=== PATIENT | female | born 1960 | race African-American/Black ===

== ENCOUNTER 2016-08-18 09:42 | Emergency (ER) | payer OTHER ==
[2016-08-18 09:58] VITALS: BP 177/87; BMI 32.1
[2016-08-18] MEDS ORDERED: XYLOCAINE 1 % (PLAIN) ONE (09:58)
[2016-08-18] MEDS ORDERED: XYLOCAINE 1 % (PLAIN) IM ONE (10:10)
--- NOTE | 2016-08-18 10:15 | DR.F ---
HPI - Time Seen Time seen: 10:10 - PCP Primary Care Physician: NASIMA - HPI Comment HPI Comment: History as stated. Denies trauma - Complaint Chief Complaint:: PT C/O LT HAND 3RD DIGIT PAIN SWELLING AND REDNESS. PT STATES YESTERDAY SHE NOTICED HER FINGER HAVING SOME PAINS AND SWELLING. - Source History Provided: Patient - Mode of Arrival Mode of Arrival: Ambulatory - Timing Onset of Chief Complaint: 08/17/16 PMH - PMH Past Medical History: Yes Past Medical History: Hypertension Past Surgical History: Yes Surgical History: Ortho Surgery - Family History History of Family Medical Conditions: Yes Family Medical History: Diabetes Mellitus, [place], Hypertension - Social History Does any household member use tobacco: No Alcohol Use: Rarely Do you use any recreational Drugs:: No Lives With: Family Lives Where: Home - infectious screening In the last 2 months have you had wt loss of >10#?: NO Have you had fever, night sweats or hemotysis?: No Have you traveled outside the country in the last 6 months?: No Isolation: Standard ROS - Review of Systems Constitutional: No Symptoms Reported Eyes: No Symptoms Reported ENTM: No Symptoms Reported Respiratoy: No Symptoms Reported Cardiovascular: No Symptoms Reported Gastrointestinal/Abdominal: No Symptoms Reported Genitourinary: No Symptoms Reported Neurological: No Symptoms Reported Musculoskeletal: Left (finger pain) Integumentary: Other Hematologic/Lymphatic: No Symptoms Reported Endocrine: No Symptoms Reported Psychiatric: No Symptoms Reported PE - Vital Signs Vitals: Temperature 97.7 F Pulse Rate 101 Respiratory Rate 20 Blood Pressure [Right Arm] 123/70 Blood Pressure 177/87 O2 Sat by Pulse Oximetry 100 Procedures - Procedure Comments Procedures: Dorsal nerve block of 3rd digit left--skin dehisced; no pus - Diagnosis Discharge Problem: Paronychia of finger of left hand - Discharge Plan Condition: Stable - Follow ups/Referrals Follow ups/Referrals: ARYA BUENO [Primary Care Provider] - 3 days - Instructions
== END 2016-08-18 10:32 | disposition home or self-care (01) ==
LOC: ER 09:42
DX: M79.642 Pain in left hand (principal)
CPT/HCPCS: 99282; J2001

== ENCOUNTER → 2017-03-29 | Outpatient (CLI) | payer OTHER ==
--- NOTE | 2017-04-02 14:34 | RAD ---
HISTORY: Right hip pain, right radiculopathy Study: Right hip AP, frog-leg, AP pelvis Comparison: None Findings: The pelvic bones and SI joints are intact. There is some degenerative joint space narrowing in the ri ght hip joint. No joint erosions are identified. No fracture, lytic, or blastic lesion is identified. IMPRESSION: Moderate degenerative joint disease right hip Reported By:
--- NOTE | 2017-04-02 14:35 | RAD ---
HISTORY: Radiculopathy with right hip pain Study: Five views of the lumbar spine Comparison: None Findings: Images demonstrate 5 [id number] lumbar vertebral bodies. The lumbar vertebral body heights are r elatively maintained. No evidence of acute displaced fracture is identified. Mild grade 1 retrolisthe sis of L2 on L3 is noted. There is suspected minimal grade 1 anterolisthesis of L3 on L4. Degenerate facet changes are seen throughout the lumbar spine. Multilevel intervertebral disc space narrowing is noted. Mild multilevel osteophytosis is also demonstrated. Atherosclerotic changes are seen within t he visualized aorta. IMPRESSION: 1. Multilevel degenerative changes as noted above. Reported By:
== END | disposition home or self-care (01) | DRG 552 ==
LOC: RAD 18:06
PROVIDERS: ATTEND Nurse Practitioner Family
DX: M54.17 Radiculopathy, lumbosacral region (principal); M25.551 Pain in right hip; M16.11 Unilateral primary osteoarthritis, right hip; M51.36 Other intervertebral disc degeneration, lumbar region
CPT/HCPCS: 72110; 73501

== ENCOUNTER → 2017-09-12 | Outpatient (CLI) | payer OTHER ==
--- NOTE | 2017-09-12 19:35 | RAD ---
LUMBAR SPINE RADIOGRAPHS CLINICAL HISTORY: 57-year-old female with right-sided pain extending into the right leg. COMPARISON: Radiographs lumbar spine 03/29/2017. FINDINGS: The most caudad, fully-formed intervertebral disc will be labeled L5-S1 for the purpose of this dictation and in keeping with prior imaging. Three views of the lumbar spine were obtained. Ther e are 5 nonrib-bearing lumbar type vertebral bodies. Normal lumbar lordosis is maintained. Vertebral body heights are maintained. No significant change and mild degenerative anterolisthesis L3 on L4 an d L4 on L5 with loss of disc space at these levels and multilevel facet hypertrophy. No radiographic evidence of acute fracture or malalignment. There is no sacroiliac diastasis. IMPRESSION: 1. No radiographic evidence of acute compression fracture deformity or malalignment on screening lumb ar spine radiographs. 2. Multilevel degenerative change as described, chronic in appearance, consider nonemergent outpatien t MR lumbar spine for radicular symptoms. Reported By:
== END ==
LOC: RAD 18:51
PROVIDERS: ATTEND Nurse Practitioner Family
DX: M54.5 Low back pain (principal)
CPT/HCPCS: 72100

== ENCOUNTER → 2017-10-12 | Outpatient (CLI) | payer OTHER ==
--- NOTE | 2017-10-12 09:25 | US ---
History: Pain Exam: Gallbladder ultrasound Comparison: None Technique: Multiple grayscale and color flow Doppler images of the gallbladder were obtained. Findings: The liver is measures 18 cm along the midclavicular line with increased echogenicity throughout the p arenchyma. No focal lesion is seen. There is hepatopetal flow in the portal vein and visualized hepat ic veins and IVC are unremarkable. The gallbladder is normal size with numerous rounded echogenic foc i in the lumen which are shadowing and mobile . There is no significant wall thickening and no perich olecystic fluid is seen. The common duct measures 6.2 mm. The right kidney measures 11 cm in length i s normal in echogenicity with a 1.2 cm cyst along the lower pole. The visualized aorta and pancreas a re unremarkable. IMPRESSION: Multiple gallstones with no sonographic evidence of cholecystitis . Mild hepatomegaly and probable fibrofatty changes throughout . Borderline enlargement of the common bile duct and unremarkable pancreas. Recommend correlating with lab values. Reported By:
== END | disposition home or self-care (01) | DRG 552 ==
LOC: RAD 08:40
PROVIDERS: ATTEND Nurse Practitioner Family
DX: M54.5 Low back pain (principal); R93.7 Abnormal findings on diagnostic imaging of other parts of musculoskeletal system; K80.20 Calculus of gallbladder without cholecystitis without obstruction
CPT/HCPCS: 76705

== ENCOUNTER 2017-12-24 05:05 | Observation (INO) ==
[2017-12-24] MEDS ORDERED: TORADOL 30 MG VIAL IVP ONE (06:42)
[2017-12-24] MEDS ORDERED: TORADOL 30 MG VIAL ONE (06:52)
[2017-12-24] MEDS ORDERED: MORPHINE SULFATE INJ 4 MG IVP ONE (07:03)
[2017-12-24] MEDS ORDERED: MORPHINE SULFATE INJ 4 MG ONE (07:07)
--- NOTE | 2017-12-24 07:15 | ED.ABDFE ---
HPI Time Seen Time seen: 06:45 PCP Primary Care Physician: ALISON PONCE Complaint Doctors Chief Complaint Comments: Patient presents to the ED with complaint of RUQ pain for the past 24 hours and not relieved by routine medication. 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 Past Surgical History Comment: LEFT TOTAL KNEE HYSTERECTOMY Family History History of Family Medical Conditions: Yes Family Medical History: Diabetes Mellitus, [place] and Hypertension Social History Does patient currently use any type of tobacco product: No Have you used tobacco products in the last 12 months: No Type of Tobacco Use: None Does any household member use tobacco: No Alcohol Use: None Do you use any recreational Drugs:: No Lives With: Spouse Lives Where: Home infectious screening In the last 2 months have you had wt loss of >10#?: NO Have you had fever, night sweats or hemotysis?: No Have you traveled outside the country in the last 6 months?: No Isolation: Standard ROS Review of Systems ENTM: No Symptoms Reported and See HPI Gastrointestinal/Abdominal: See HPI and Abdominal Pain Genitourinary: No Symptoms Reported Neurological: No Symptoms Reported Musculoskeletal: No Symptoms Reported PE Vital Signs Vitals: Temperature 97.0 F Pulse Rate 99 Respiratory Rate 20 Blood Pressure [Right Arm] 123/70 Blood Pressure 190/95 O2 Sat by Pulse Oximetry 97 General General Appearance: Alert, Anxious and In Distress Eyes Eye exam: Normal Appearance ENT ENT Exam: Normal Exam, Normal Oropharynx, Normal External Ear Exam and Mucous Membranes Moist Neck Neck Exam: Normal Inspection, Full ROM and Trachea Midline; negative Tenderness Chest Chest Inspection: Normal Inspection and Symmetric Chest Wall Rise; negative Tenderness Respiratory Respiratory Exam: Normal Lung Sounds Bilat; negative Chest Wall Tenderness and Respiratory Distress Respiratory Exam: Bilateral: Clear to Auscultation Cardiovascular Cardiovascular Exam: Regular Rate and Normal Rhythm Abdominal Exam Abdominal Exam: Normal Inspection, Soft, Rebound (RUQ tenderness) and Hyperactive Bowel Sounds; negative Ascites Rectal Rectal Exam: Deferred Back Back Exam: Normal Inspection; negative (R) CVA Tenderness and (L) CVA Tenderness Extremeties Extremities Exam: Normal Inspection and Full ROM External Exam: Female: Deferred : Speculum Exam (Female): Deferred : Bimanual Exam (female): Deferred Neurologic Neurological Exam: Alert, Oriented X3 and CN II-XII Intact Psychiatric Psychiatric Exam: Normal Affect, Normal Mood and Anxious Skin Skin Exam: Warm, Dry, Intact and Normal Color; negative Rash, Diaphoresis and Erythema COURSE Treatment Treatment: Toradol, Morphine Reevaluation 1st: Improved 3rd: Unchanged ROR Labs Reviewed Laboratory Results Reviewed?: Yes ADDITIONAL NOTES Additional Notes Additional Notes: Dr Truong was contacted he agreed to admit for further evaluation 0750. Dr Javed contacted and he reported that he will see patient this PM.
[2017-12-24 08:26] LABS: BASOPHILS % (AUTO) 0.9 % (0.2-1.0); EOSINOPHILS # (AUTO) 0.1 x10^3/uL (0.0-0.2); EOSINOPHILS % (AUTO) 1.5 % (0.9-2.9); HEMATOCRIT 36.6 % (36.0-47.0); LYMPHOCYTES # (AUTO) 1.7 X10^3/uL (1.3-2.9); MEAN CORPUSCULAR HEMOGLOBIN 27.7 pg (27.0-34.0); MEAN CORPUSCULAR HGB CONC 32.8 g/dL (33.0-35.0); MEAN CORPUSCULAR VOLUME 84.4 fL (80.0-100.0); MEAN PLATELET VOLUME 10.1 fL (7.4-11.0); MONOCYTES # (AUTO) 0.4 x10^3/uL (0.3-0.8); MONOCYTES % (AUTO) 6.9 % (0.0-13.0); NEUTROPHILS # (AUTO) 3.5 x10^3/uL (2.2-4.8); NEUTROPHILS % (AUTO) 60.7 % (42.0-75.0); PLATELET COUNT 249 X10^3/uL (150.0-450.0); RED BLOOD COUNT 4.34 X10^6/uL (3.5-5.4); RED CELL DISTRIBUTION WIDTH 13.4 % (11.6-16.5); WHITE BLOOD COUNT 5.8 X10^3/uL (3.6-10.0)
[2017-12-24] MEDS ORDERED: PREVNAR 13 IM ONE (09:23)
[2017-12-24] MEDS: NORVASC TAB 5 MG PO SCH (09:57)
[2017-12-24] MEDS: NS 1000 ML 1,000 ML IV SCH ×2 (09:57→21:10)
[2017-12-24] MEDS: GLUCOPHAGE PO SCH ×2 (09:59→21:12)
[2017-12-24 13:47] LABS: BILIRUBIN,URINE NEGATIVE (NEGATIVE); BLOOD/HEMOGLOBIN,URINE 1+ (NEGATIVE); GLUCOSE, URINE NEGATIVE (NEGATIVE); KETONES,URINE NEGATIVE (NEGATIVE); LEUKOCYTE ESTERASE ,URINE 3+ (NEGATIVE); NITRITES,URINE NEGATIVE (NEGATIVE); PROTEIN,URINE 2+ (NEGATIVE); UROBILINOGEN,URINE NORMAL (NORMAL)
[2017-12-24 14:01] LABS: APPEARANCE,URINE HAZY (CLEAR); BACTERIA,URINE TRACE /HPF (NEGATIVE); COLOR,URINE YELLOW (YELLOW); MUCUS,URINE FEW /HPF (NEGATIVE); RBC,URINE 0-2 /HPF (NONE SEEN); SQUAMOUS EPITHELIAL CELL,UR MODERATE /HPF (NEGATIVE)
[2017-12-24] MEDS: MORPHINE SULFATE INJ 2 MG INJ IVP PRN (15:03)
[2017-12-24] MEDS ORDERED: PNEUMOVAX 23 IM ONE (16:00)
[2017-12-24] MEDS ORDERED: ULTRAM PO PRN (19:32)
[2017-12-25] MEDS: MORPHINE SULFATE INJ 2 MG INJ IVP PRN ×2 (03:40→09:23)
[2017-12-25 05:33] LABS: BASOPHILS % (AUTO) 0.8 % (0.2-1.0); EOSINOPHILS # (AUTO) 0.1 x10^3/uL (0.0-0.2); EOSINOPHILS % (AUTO) 2.4 % (0.9-2.9); HEMATOCRIT 34.9 % (36.0-47.0); HEMOGLOBIN 11.3 g/dL (12.0-16.0); LYMPHOCYTES % (AUTO) 40.6 % (21.0-51.0); MEAN CORPUSCULAR HEMOGLOBIN 27.2 pg (27.0-34.0); MEAN CORPUSCULAR HGB CONC 32.3 g/dL (33.0-35.0); MEAN CORPUSCULAR VOLUME 84.2 fL (80.0-100.0); MEAN PLATELET VOLUME 10.6 fL (7.4-11.0); MONOCYTES # (AUTO) 0.4 x10^3/uL (0.3-0.8); NEUTROPHILS # (AUTO) 2.4 x10^3/uL (2.2-4.8); NEUTROPHILS % (AUTO) 48.2 % (42.0-75.0); PLATELET COUNT 239 X10^3/uL (150.0-450.0); RED BLOOD COUNT 4.15 X10^6/uL (3.5-5.4); RED CELL DISTRIBUTION WIDTH 13.9 % (11.6-16.5)
[2017-12-25 05:53] LABS: ALANINE AMINOTRANSFERASE 22 Units/L (12-78); ALKALINE PHOSPHATASE 62 Units/L (46-116); ASPARTATE AMINO TRANSFERASE 13 Units/L (15-37); BLOOD UREA NITROGEN 11 mg/dL (7-18); CALCIUM 8.6 mg/dL (8.5-10.1); CARBON DIOXIDE 28.8 mmol/L (21-32); CHLORIDE 106 mmol/L (98-107); COR CA(FOR HYPOALB) 9.4 mg/dL (8.5-10.1); SODIUM 141 mmol/L (136-145); TOTAL PROTEIN 6.6 g/dL (6.4-8.2); eGFR NON BLACK RACES > 60 (>60)
[2017-12-25] MEDS: NS 1000 ML 1,000 ML IV SCH ×4 (06:15→22:27)
[2017-12-25] MEDS: NORVASC TAB 5 MG PO SCH (08:54)
[2017-12-25] MEDS: GLUCOPHAGE PO SCH ×2 (08:55→20:11)
[2017-12-25] MEDS ORDERED: DILAUDID INJ ONE (12:34)
[2017-12-25] MEDS ORDERED: FENTANYL INJ 100 mcg ONE (12:35)
[2017-12-25] MEDS ORDERED: DECADRON INJ ONE (12:35)
[2017-12-25] MEDS ORDERED: LR 1000 ML IV 1,000 ML IV ONE (12:53)
[2017-12-25] MEDS ORDERED: ANCEF 1 GRAM IV PREMIX* 1 G/50 ML BAG IV ONE (12:53)
[2017-12-25] MEDS ORDERED: ZOFRAN INJ 4 MG VIAL IVP PRN (14:29)
[2017-12-25] MEDS ORDERED: BENADRYL INJ 50 MG VIAL IVP PRN (14:29)
[2017-12-25] MEDS ORDERED: DILAUDID INJ IVP PRN (14:29)
[2017-12-25] MEDS ORDERED: PHENERGAN INJ 25 MG IVP PRN (14:29)
[2017-12-25] MEDS ORDERED: REGLAN INJ 10 MG VIAL IVP PRN (14:29)
--- NOTE | 2017-12-25 14:43 | OR.GENERIC ---
Post-Op Note Generic - Post-Op Note Operative Report: diagnostic laparoscopy and lap Malika was done .. finding : recurrent calculus cholecystitis and dense adhesions just below the umbilicus with two loops of small intestine densely attached to the abdominal wall with scar tissue ., these might need future laparotomy and lysis of adhesions .. Pt did well . EBL 10 cc .. to keep only on liquid diet for now .
[2017-12-25] MEDS ORDERED: LEVAQUIN PREMIX IV 500 MG 500 MG/100 ML BAG IV ONE (14:49)
[2017-12-25] MEDS: DILAUDID INJ IM PRN (20:10)
[2017-12-25] MEDS: ZOFRAN INJ 4 MG VIAL IVP PRN (20:17)
[2017-12-26] MEDS: NS 1000 ML 1,000 ML IV SCH ×3 (05:06→09:35)
[2017-12-26 05:25] LABS: BASOPHILS % (AUTO) 0.4 % (0.2-1.0); EOSINOPHILS % (AUTO) 0.1 % (0.9-2.9); HEMATOCRIT 35.2 % (36.0-47.0); HEMOGLOBIN 11.6 g/dL (12.0-16.0); LYMPHOCYTES # (AUTO) 0.8 X10^3/uL (1.3-2.9); LYMPHOCYTES % (AUTO) 8.4 % (21.0-51.0); MEAN CORPUSCULAR HEMOGLOBIN 27.6 pg (27.0-34.0); MEAN CORPUSCULAR HGB CONC 32.9 g/dL (33.0-35.0); MEAN CORPUSCULAR VOLUME 83.8 fL (80.0-100.0); MEAN PLATELET VOLUME 10.2 fL (7.4-11.0); MONOCYTES # (AUTO) 0.4 x10^3/uL (0.3-0.8); MONOCYTES % (AUTO) 4.4 % (0.0-13.0); NEUTROPHILS # (AUTO) 8.4 x10^3/uL (2.2-4.8); NEUTROPHILS % (AUTO) 86.7 % (42.0-75.0); PLATELET COUNT 266 X10^3/uL (150.0-450.0); RED CELL DISTRIBUTION WIDTH 13.7 % (11.6-16.5); WHITE BLOOD COUNT 9.7 X10^3/uL (3.6-10.0)
[2017-12-26] MEDS: MORPHINE SULFATE INJ 2 MG INJ IVP PRN (05:32)
[2017-12-26 05:36] LABS: ALANINE AMINOTRANSFERASE 30 Units/L (12-78); ALKALINE PHOSPHATASE 60 Units/L (46-116); ASPARTATE AMINO TRANSFERASE 21 Units/L (15-37); BLOOD UREA NITROGEN 11 mg/dL (7-18); CALCIUM 8.7 mg/dL (8.5-10.1); CARBON DIOXIDE 27.3 mmol/L (21-32); CHLORIDE 105 mmol/L (98-107); COR CA(FOR HYPOALB) 9.5 mg/dL (8.5-10.1); COR NA(FOR HYPERGLY) 140 mmol/L (136-145); CREATININE 0.72 mg/dL (0.55-1.02); SODIUM 139 mmol/L (136-145); TOTAL PROTEIN 6.9 g/dL (6.4-8.2); eGFR NON BLACK RACES > 60 (>60)
[2017-12-26] MEDS: GLUCOPHAGE PO SCH (08:02)
[2017-12-26] MEDS: NORVASC TAB 5 MG PO SCH (08:02)
[2017-12-26] MEDS: ZOFRAN INJ 4 MG VIAL IVP PRN (08:09)
[2017-12-26] MEDS: DILAUDID INJ IM PRN (08:10)
[2017-12-26 09:35] VITALS: BP 129/59
[2017-12-26] MEDS ORDERED: DECADRON INJ ONE (12:45)
[2017-12-26] MEDS ORDERED: QUELICIN (OR ANECTINE) ONE (12:45)
[2017-12-26] MEDS ORDERED: TORADOL 30 MG VIAL ONE (12:45)
[2017-12-26] MEDS ORDERED: VERSED ONE (12:45)
[2017-12-26] MEDS ORDERED: NORCURON INJ 10 MG VIAL ONE (12:45)
[2017-12-26] MEDS ORDERED: NEOSTIGMINE INJ ONE (12:45)
[2017-12-26] MEDS ORDERED: ZOFRAN INJ 4 MG VIAL ONE (12:45)
[2017-12-26] MEDS ORDERED: ROBINUL ONE (12:45)
[2017-12-26] MEDS ORDERED: SUPRANE IN ONE (12:45)
[2017-12-26] MEDS ORDERED: DIPRIVAN VIAL ONE (12:45)
--- NOTE | 2018-01-25 21:42 | DR.CARTERD ---
- Discharge Summary for: Discharge Summary for Date of:: 12/26/17 - Admission Date Date of Admission: 12/24/17 - Admission Diagnoses Admission Diagnosis: 1. Cholecystitis 2. Abdominal pain 3. Nausea and vomiting - Discharge Date Discharge Date: 12/26/17 - Discharge Diagnoses Discharge Diagnosis: 1. Cholecystitis 2. Abdominal pain 3. Nausea and vomiting - Hospital Course Hospital Course: Day one, Patient presented to the emergency room with reports of right upper quadrant abdominal pain. Patient reported symptoms started one day prior without improvement in symptoms despite oral pain and nausea medications. Symptoms reported included nausea and vomiting. Patient noted with right upper quadrant abdominal tenderness on palpation and hyperactive bowel sounds on auscultation of all quadrants. Medical History: DM, Hypertension. Abnormal Labs: MCHC 32.8. Urinalysis: Hazy, Specific [place] 1.025, Protein 1+, Lek Est 3+, RBC 0-2, WBC 3-5, Bacteria Trace, Mucus Few. Patient admitted to hospital for further evaluation and treatment. Patient was held NPO due to nausea and vomiting. Day two, Patient was noted with continued abdominal pain, nausea and vomiting. Abdomen was noted to be tender on palpation of all quadrants with increased tenderness noted to right upper quadrant. Patient underwent an outpatient gallbladder ultrasound in October which revealed multiple gallstones, mild hepatomegaly and enlargement of the common bile duct. Given the acute recurrence of symptoms Dr. Rosas, General Surgeon, consulted for laparoscopic cholecystectomy. Patient remained NPO. Abnormal Labs: Hgb 11.3, Hct 34.9, MCHC 32.3, AST 13, Albumin 3.0, A/G ratio 0.8. Gallbladder Ultrasound: (10/12/17) Multiple gallstones with no sonographic evidence of cholecystitis. Mild hepatomegaly and probable fibrofatty changes throughout. Borderline enlargement of the common bile duct and unremarkable pancreas. Recommend correlating with lab values. Dr. Rosas took patient to OR for [facility]. Patient tolerated procedure well. Dressings were dry and intact. Day three, Patient was doing well following surgery. She reported decreased nausea and abdominal pain. Patient was tolerating liquids well. Patient reported pain was controlled with oral pain medications. Dr. Rosas released patient for discharge. Dressings were dry and intact. Patient was up and ambulating without assistance. Vitals stable. Labs wnl. We planned for discharge. Instructions for medications and follow up were discussed with patient and family, both voiced understanding. Patient discharged home in stable condition with family. - Discharge Medications Discharge Medications: Home Medication List glimepiride 1 tab PO DAILY 12/24/17 [History] metformin 850 mg PO BID 12/24/17 [History] tramadol 50 mg PO TID PRN 12/24/17 [History] hydrocodone-acetaminophen [Bonner] 1 tab PO Q4H PRN #20 tab 12/26/17 [Rx] Prescriptions: hydrocodone-acetaminophen [Bonner] KAYLIN ROSAS Home medications amlodipine 5 mg PO DAILY 01/19/16 - Discharge Disposition Discharge Disposition: Patient is to follow up TALON Prince in one week and with Dr. Rosas in one week.
--- NOTE | 2018-02-14 20:52 | PCM.PROG ---
Progress Note - Progress Note for Day of Date of Exam: 12/25/17 - Subjective Subjective: WAS ADMITTED FOR CHOLECYSTITIS. TODAY, SHE IS ALERT AND ORIENTED, LYING IN BED ON MORNING ROUNDS. SHE CONTINUES WITH COMPLAINTS OF RUQ PAIN TODAY WELL NAUSEA TODAY. ON EXAMINATION, HEART IS REGULAR IN RATE AND RHYTHM. BILATERAL LUNGS ARE CLEAR TO AUSCULTATION. ABDOMEN IS ROUND, SOFT, AND NOTED WITH RUQ TENDERNESS TO PALPATION. NORMAL BOWEL SOUNDS ARE NOTED IN ALL QUADRANTS. HER VITLAS THIS MORNING ARE 97.5-61-18-99%-149/72. LABS WERE OBTAINED. ABNORMAL LAB VALUES INCLUDE THE FOLLOWING: HGB 11.3, HCT 34.9, AST 13 , ALBUMIN 3.0. CONSULTED WITH PATIENT AND PLANS TO TAKE HER FOR A LAPROSCOPIC CHOLECYSTECTOMY THIS MORNING. WE ARE IN AGREEMENT WITH PLAN AND PATIENT IS MEDICALLY STABLE AND CLEAR FOR SURGERY. WE PLAN TO FOLLOW UP WITH AM LABS AND CONTINUE TO MONITOR PATIENT. - Past Medical Family Social History Past Med/Fam/Surg Hx: No changes since H&P Allergies: Allergies aspirin Allergy (Verified 12/24/17 05:06) - Review of Systems ROS: No change since H&P - Vital Signs and I&O's Vital Signs: Temperature 98.3 F Pulse Rate [Right Brachial] 68 Pulse Rate 61 Respiratory Rate 20 Blood Pressure [Right Arm] 129/59 Blood Pressure 155/78 O2 Sat by Pulse Oximetry 98 - Physical Exam Oriented: Normal Eyes: Normal Ear: Normal Nose: Normal Throat: Normal Respiratory: Normal Cardiovascular: Normal : Normal Auscultation: Bowel Sounds: Normal Palpation: Normal Tenderness: RUQ Skin: Normal Musculoskeletal: Normal Psychiatric: Normal Mood Description: Calm Affect: Normal Speech Pattern: Clear, Appropriate - Laboratory and Diagnostics Result Diagrams: 12/26/17 05:05 12/26/17 05:05 Labs: Laboratory WBC 9.7 X10^3/uL (3.6-10.0) 12/26/17 05:05 RBC 4.20 X10^6/uL (3.5-5.4) 12/26/17 05:05 Hgb 11.6 g/dL (12.0-16.0) L 12/26/17 05:05 Hct 35.2 % (36.0-47.0) L 12/26/17 05:05 MCV 83.8 fL (80.0-100.0) 12/26/17 05:05 MCH 27.6 pg (27.0-34.0) 12/26/17 05:05 MCHC 32.9 g/dL (33.0-35.0) L 12/26/17 05:05 RDW 13.7 % (11.6-16.5) 12/26/17 05:05 Plt Count 266 X10^3/uL (150.0-450.0) 12/26/17 05:05 MPV 10.2 fL (7.4-11.0) 12/26/17 05:05 Neut % (Auto) 86.7 % (42.0-75.0) H 12/26/17 05:05 Lymph % (Auto) 8.4 % (21.0-51.0) L 12/26/17 05:05 [place] % (Auto) 4.4 % (0.0-13.0) 12/26/17 05:05 Eos % (Auto) 0.1 % (0.9-2.9) L 12/26/17 05:05 Baso % (Auto) 0.4 % (0.2-1.0) 12/26/17 05:05 Neut # (Auto) 8.4 x10^3/uL (2.2-4.8) H 12/26/17 05:05 Lymph # (Auto) 0.8 X10^3/uL (1.3-2.9) L 12/26/17 05:05 [place] # (Auto) 0.4 x10^3/uL (0.3-0.8) 12/26/17 05:05 Eos # (Auto) 0.0 x10^3/uL (0.0-0.2) 12/26/17 05:05 Baso # (Auto) 0.0 X10^3/uL (0.0-0.1) 12/26/17 05:05 Absolute Nucleated RBC 0.0 /100WBC 12/26/17 05:05 Sodium 139 mmol/L (136-145) 12/26/17 05:05 Corrected Sodium 140 mmol/L (136-145) 12/26/17 05:05 Potassium 4.6 mmol/L (3.5-5.1) 12/26/17 05:05 Chloride 105 mmol/L (98-107) 12/26/17 05:05 Carbon Dioxide 27.3 mmol/L (21-32) 12/26/17 05:05 BUN 11 mg/dL (7-18) 12/26/17 05:05 Creatinine 0.72 mg/dL (0.55-1.02) 12/26/17 05:05 Est GFR (MDRD) Af Amer > 60 (>60) 12/26/17 05:05 Est GFR (MDRD) Non-Af > 60 (>60) 12/26/17 05:05 Glucose 141 mg/dL (65-99) H 12/26/17 05:05 POC Glucose (mg/dL) 139 mg/dL (65-99) H 12/26/17 05:32 Calcium 8.7 mg/dL (8.5-10.1) 12/26/17 05:05 Corrected Calcium 9.5 mg/dL (8.5-10.1) 12/26/17 05:05 Total Bilirubin 0.20 mg/dL (0.2-1.0) 12/26/17 05:05 AST 21 Units/L (15-37) 12/26/17 05:05 ALT 30 Units/L (12-78) 12/26/17 05:05 Alkaline Phosphatase 60 Units/L (46-116) 12/26/17 05:05 Total Protein 6.9 g/dL (6.4-8.2) 12/26/17 05:05 Albumin 3.0 g/dL (3.4-5.0) L 12/26/17 05:05 Globulin 3.9 g/dL (2.5-4.5) 12/26/17 05:05 Albumin/Globulin Ratio 0.8 Ratio (1.1-2.1) L 12/26/17 05:05 Specimen Type Clean catch urine 12/24/17 13:36 Urine Color Yellow (YELLOW) 12/24/17 13:36 Urine Appearance Hazy (CLEAR) 12/24/17 13:36 Urine pH 5.0 (5.0 - 8.0) 12/24/17 13:36 Ur Specific [place] 1.025 (1.000-1.030) 12/24/17 13:36 Urine Protein 2+ (NEGATIVE) 12/24/17 13:36 Urine Glucose (UA) Negative (NEGATIVE) 12/24/17 13:36 Urine Ketones Negative (NEGATIVE) 12/24/17 13:36 Urine Occult Blood 1+ (NEGATIVE) 12/24/17 13:36 Urine Nitrite Negative (NEGATIVE) 12/24/17 13:36 Urine Bilirubin Negative (NEGATIVE) 12/24/17 13:36 Urine Urobilinogen Normal (NORMAL) 12/24/17 13:36 Ur Leukocyte Esterase 3+ (NEGATIVE) 12/24/17 13:36 Urine RBC 0-2 /HPF (NONE SEEN) 12/24/17 13:36 Urine WBC 3-5 /HPF (NONE SEEN) 12/24/17 13:36 Ur Squamous Epith Cells Moderate /HPF (NEGATIVE) 12/24/17 13:36 Urine Bacteria Trace /HPF (NEGATIVE) 12/24/17 13:36 Urine Mucus Few /HPF (NEGATIVE) 12/24/17 13:36 Ur Culture Indicated? No/not indicated 12/24/17 13:36 Tissue Pathology To follow 12/25/17 14:39 - Plan (1) Cholecystitis Status: Acute Plan: LUIS CARLOS TODAY, CONTINUE TO MONITOR
== END 2017-12-26 10:40 | disposition home or self-care (01) ==
LOC: MED/SURG 05:05 → ER 05:05 → MED/SURG 08:41
PROVIDERS: ADMIT Internal Medicine; ATTEND Internal Medicine
DX: I10 Essential (primary) hypertension; R94.31 Abnormal electrocardiogram [ECG] [EKG]; R11.2 Nausea with vomiting, unspecified; K80.12 Calculus of gallbladder with acute and chronic cholecystitis without obstruction; R10.31 Right lower quadrant pain; K82.8 Other specified diseases of gallbladder; E11.65 Type 2 diabetes mellitus with hyperglycemia
CPT/HCPCS: 36415; 80053; 81001; 85025; 93005; 96365; 96374; 96375; 99282; 99284; A4216; A4222; A4217; G0378; J0330; J0690; J1100; J1170; J1885; J1956; J2250; J2270; J2405; J2704; J2710; J3010; J3490; J7030; J7120; S0195